=== PATIENT | female | born 1980 | race Asian ===

== ENCOUNTER 2017-12-11 03:53 | Observation (INO) | payer OTHER ==
[~2017-12-11] VITALS: Ht 154.9 cm; Wt 57.2 kg
[2017-12-11 04:43] LABS: HEMATOCRIT 35.4 % (36.0-46.0); HEMOGLOBIN 12.1 G/DL (11.9-15.5); MCH 31.3 PG (29.0-34.0); MCHC 34.2 G/DL (30.0-36.0); MCV 91.7 FL (83-99); PLATELET COUNT 205 K/uL (156-360); RBC DIS.WIDTH-CV 12.1 % (11.8-14.6); RBC DIS.WIDTH-SD 40.7 % (39-53); RED BLOOD COUNT 3.86 M/uL (3.80-5.20); WHITE BLOOD COUNT 11.7 K/uL (4.1-10.2)
[2017-12-11 04:55] LABS: ALBUMIN 4.1 g/dL (3.2-4.8); CHLORIDE 107 mEq/L (99-109); POTASSIUM 3.9 mEq/L (3.7-5.4); SODIUM 137 mEq/L (136-147)
[2017-12-11 04:57] LABS: GLUCOSE 125 mg/dL (70-99)
[2017-12-11 04:59] LABS: TOTAL BILIRUBIN 0.4 mg/dL (0.0-1.0)
[2017-12-11 05:01] LABS: ALKALINE PHOSPHATASE 45 IU/L (3-129); CREATININE 0.7 mg/dL (0.6-1.3); GFR ESTIMATE (CALCULATED) > 59 mL/min/
[2017-12-11 05:02] LABS: UREA NITROGEN (BUN) 13 mg/dL (9-23)
[2017-12-11 05:03] LABS: AST (GOT) 18 IU/L (2-34)
[2017-12-11 05:04] LABS: ALT (GPT) 15 IU/L (3-49)
[2017-12-11 05:12] LABS: APPEARANCE CLOUDY ((CLEAR)); BILIRUBIN NEGATIVE; BLOOD NEGATIVE; COLOR YELLOW ((YELLOW)); GLUCOSE (STRIP) NEGATIVE; KETONES NEGATIVE; LEUKOCYTES NEGATIVE; NITRITE NEGATIVE; PROTEIN (STRIP) 30; SPECIFIC GRAVITY 1.032 (1.000-1.030); UROBILINOGEN 0.2 MG/DL (0.2-1.0)
[2017-12-11 05:12] LABS: QUANTITATIVE HCG < 4.0 MIU/ML
[2017-12-11 05:26] LABS: BACTERIA 1+ /HPF; EPITHELIAL CELLS RARE /HPF; MUCUS 3+ /LPF; RED BLOOD CELLS 0-5 /HPF (0-5); UCUL ADDED? NO; WHITE BLOOD CELLS 0-5 /HPF (0-5)
[2017-12-11 09:35] LABS: HEMOGLOBIN 10.4 G/DL (11.9-15.5); MCV 90.9 FL (83-99)
[2017-12-11 14:23] LABS: BASOPHIL (%) 0.1 % (0-1); EOSINOPHIL (%) 0.2 % (0-5); HEMATOCRIT 28.2 % (36.0-46.0); HEMOGLOBIN 9.6 G/DL (11.9-15.5); IMMATURE GRANULOCYTE (%) 0.4 % (0.0-0.7); LYMPHOCYTE (%) 18.5 % (15-42); LYMPHOCYTE COUNT 1.7 K/uL (1.0-2.8); MONOCYTE (%) 6.4 % (3-12); MONOCYTE COUNT 0.6 K/uL (0-0.8); NEUTROPHIL (%) 74.4 % (45-76); PLATELET COUNT 144 K/uL (156-360); RBC DIS.WIDTH-CV 12.1 % (11.8-14.6); RBC DIS.WIDTH-SD 40.1 % (39-53); WHITE BLOOD COUNT 9.4 K/uL (4.1-10.2)
[2017-12-11] MEDS ORDERED: NORLYDA0.35 MG PO (14:58)
[2017-12-11 15:47] VITALS: BP 127/73
[2017-12-11 20:05] VITALS: BP 127/69
[2017-12-12 00:05] VITALS: BP 108/68
[2017-12-12 04:40] VITALS: BP 111/66
[2017-12-12 07:40] VITALS: BP 114/74
[2017-12-12 07:48] LABS: BASOPHIL (%) 0.4 % (0-1); EOSINOPHIL (%) 2.5 % (0-5); EOSINOPHIL COUNT 0.1 K/uL (0-0.3); HEMOGLOBIN 8.2 G/DL (11.9-15.5); IMMATURE GRANULOCYTE (%) 0.4 % (0.0-0.7); LYMPHOCYTE (%) 26.4 % (15-42); LYMPHOCYTE COUNT 1.4 K/uL (1.0-2.8); MCH 30.4 PG (29.0-34.0); MCHC 32.8 G/DL (30.0-36.0); MCV 92.6 FL (83-99); MONOCYTE (%) 7.4 % (3-12); MONOCYTE COUNT 0.4 K/uL (0-0.8); NEUTROPHIL (%) 62.9 % (45-76); NEUTROPHIL COUNT 3.2 K/uL (1.8-6.4); PLATELET COUNT 130 K/uL (156-360); RBC DIS.WIDTH-CV 12.3 % (11.8-14.6); RBC DIS.WIDTH-SD 41.1 % (39-53); WHITE BLOOD COUNT 5.2 K/uL (4.1-10.2)
[2017-12-12] MEDS ORDERED: MOTRIN800 MG PO (07:51)
[2017-12-12] MEDS ORDERED: ENDOCET 5-3251 EACH PO (07:51)
== END 2017-12-12 11:23 | disposition home or self-care (01) ==
LOC: EME 03:53 → EDOF 12:21 → ENRESERV 12:52 → 2EAST 15:34
PROVIDERS: Emergency Medicine; Obstetrics & Gynecology Obstetrics
DX: K66.1 Hemoperitoneum (principal); Z86.19 Personal history of other infectious and parasitic diseases; Z79.3 Long term (current) use of hormonal contraceptives; N83.201 Unspecified ovarian cyst, right side; N83.202 Unspecified ovarian cyst, left side; D62 Acute posthemorrhagic anemia
CPT/HCPCS: 74177; 76856; 80053; 81003; 84702; 85014; 85018; 85025; 85027; 99281; 99285; G0378; J1885; J2270; J2405; J3010; J7030; J7120